=== PATIENT | female | born 1980 | race Caucasian/White ===

== ENCOUNTER 2023-10-30 09:43 | Emergency (ER) | payer OTHER, MEDICAID ==
[2023-10-30 10:20] LABS: BASOPHILS # (AUTO) 0.1 10^3/uL (0.0-0.1); BASOPHILS % (AUTO) 1.1 %; EOSINOPHILS # (AUTO) 0.3 10^3/uL (0.0-0.7); EOSINOPHILS % (AUTO) 4.3 %; HGB - HEMOGLOBIN 14.1 g/dL (12.0-16.0); LYMPHOCYTES # (AUTO) 3.3 10^3/uL (1.5-3.5); LYMPHOCYTES % (AUTO) 41.5 %; MEAN CORPUSCULAR HEMOGLOBIN 29.1 pg (27.0-31.0); MEAN CORPUSCULAR HGB CONC 32.8 g/dL (32.0-36.0); MEAN CORPUSCULAR VOLUME 88.7 fL (81.0-99.0); MEAN PLATELET VOLUME 10.9 fL (7.9-10.8); MONOCYTES # (AUTO) 0.5 10^3/uL (0.0-1.0); MONOCYTES % (AUTO) 5.7 %; NEUTROPHILS # (AUTO) 3.7 10^3/uL (1.5-6.6); PLT - PLATELET COUNT 260 10^3/uL (130-450); RED BLOOD COUNT 4.85 10^6/uL (4.20-5.40); RED CELL DISTRIBUTION WIDTH 13.5 % (12.0-15.0); WHITE BLOOD COUNT 7.9 x10^3/uL (4.8-10.8)
[2023-10-30 10:41] LABS: ALBUMIN 4.3 g/dL (3.2-5.5); ALBUMIN/GLOBULIN RATIO 1.5 (1.0-2.2); BILIRUBIN,TOTAL 0.6 mg/dL (0.2-1.0); CALCIUM 9.7 mg/dL (8.5-10.3); CREATININE 0.8 mg/dL (0.6-1.3); POTASSIUM 4.4 mmol/L (3.5-4.5); TOTAL PROTEIN 7.2 g/dL (6.4-8.9)
--- NOTE | 2023-10-30 11:12 | XRAY Report ---
PROCEDURE: Chest 1V INDICATIONS: Chest pain TECHNIQUE: One view of the chest was acquired. COMPARISON: None. FINDINGS: Surgical changes and devices: None. Lungs and pleura: Low lung volumes. No dense consolidation or pleural effusion Mediastinum: Normal heart size Bones and chest wall: No suspicious bony lesions. Overlying soft tissues appear unremarkable. IMPRESSION: No acute radiographic abnormality on this limited single view portable radiograph with low lung volum es Reviewed by: Nicolas Alejandro MD on 10/30/2023 11:11 AM PDT Approved by: Nicolas Alejandro MD on 10/30/2023 11:11 AM PDT Station ID: [id number]
--- NOTE | 2023-10-30 11:58 | ED Physician Documentation ---
PD HPI CHEST PAIN - Stated complaint Stated Complaint: CHEST PX - Chief complaint Chief Complaint: Cardiac - History obtained from History obtained from: Patient - Additional information Additional information: The patient comes to the emergency department chief complaint of right-sided chest pain for the last couple of days. She states that she had been reaching over with her right arm while leaning and was doing some repetitive work with her right arm before the pain came on. She states that she began to notice that she was getting sore around her pectoralis area and axilla and that since then, the soreness has just increased. She denies any shortness of breath or nausea. She denies any left-sided chest pain. She states that it hurts when she stretches her chest or pulled her shoulder back. She has had her gallbladder out. She states that it has just gotten uncomfortable to sleep at night and she just wanted to make sure nothing else was going on. No swelling in her legs. No history of cardiac issues. She is a borderline diabetic. No other complaints at this time. PD PAST MEDICAL HISTORY - Past Medical History Past Medical History: Yes Endocrine/Autoimmune: Type 2 diabetes - Past Surgical History Past Surgical History: No - Present Medications Home Medications: Ambulatory Orders Medication Instructions Recorded Confirmed Cyclobenzaprine [Flexeril] 10 mg PO TID PRN #20 tablet 10/30/23 HYDROcod/ACETAM 5/325 [[place] 5/325] 1 - 2 tablet PO Q6H PRN #7 tablet 10/30/23 - Allergies Allergies/Adverse Reactions: Allergies Allergy/AdvReac Type Severity Reaction Status Date / Time No Known Drug Allergies Allergy Verified 10/30/23 09:49 - Social History Does the pt smoke?: Yes Smoking Status: Current every day smoker Does the pt drink ETOH?: No Does the pt have substance abuse?: No PD ED PE NORMAL - Vitals Vital signs reviewed: Yes - General General: Alert and oriented X 3, No acute distress, Well developed/nourished - HEENT HEENT: Atraumatic, PERRL, EOMI, Moist mucous membranes - Neck Neck: Supple, no meningeal sign - Cardiac Cardiac: RRR, No murmur - Respiratory Respiratory: No respiratory distress, Clear bilaterally - Abdomen Abdomen: Soft, Non tender, Non distended - Derm Derm: Normal color, Warm and dry, No rash - Extremities Extremities: No deformity, No edema, No calf tenderness / cord - Neuro Neuro: Alert and oriented X 3 - Psych Psych: Normal mood, Normal affect - Free text exam Free text exam: Some tenderness to palpation along the right sternal border, dissipating as palpation progresses toward the right. Results - EKG (time done) 0949 EKG releavant findings:: EKG personally interpreted by author of this note. Relevant findings are: Rate: Rate (enter#) (61) Rhythm: NSR [place]: Normal Intervals: Normal [place] QRS: Normal Ischemia: Normal ST segments Compare to prior EKG: Old EKG unavailable Computer interpretation: Agree with computer - Labs Labs: Laboratory Tests 10/30/23 10/30/23 10:14 10:14 WBC 7.9 RBC 4.85 Hgb 14.1 Hct 43.0 MCV 88.7 MCH 29.1 MCHC 32.8 RDW 13.5 Plt Count 260 MPV 10.9 H Neut # (Auto) 3.7 Lymph # (Auto) 3.3 [place] # (Auto) 0.5 Eos # (Auto) 0.3 Baso # (Auto) 0.1 Absolute Nucleated RBC 0.00 Nucleated RBC % 0.0 Sodium 137 Potassium 4.4 Chloride 104 Carbon Dioxide 27 Anion Gap 6.0 BUN 17 Creatinine 0.8 Estimated GFR (MDRD) 79 L Glucose 120 H Calcium 9.7 Total Bilirubin 0.6 AST 41 ALT 104 H Alkaline Phosphatase 75 Troponin I High Sens 2.4 Total Protein 7.2 Albumin 4.3 Globulin 2.9 Albumin/Globulin Ratio 1.5 Lipase 14 - Rads (name of study) Chest x-ray Relevant Findings:: Final report received, See rad report (No acute findings.) PD Medical Decision Making - ED course Complexity details: reviewed results, re-evaluated patient, considered differential, d/w patient ED course: The patient had was in the most likely to be musculoskeletal The patient had what sounded most likely to be musculoskeletal chest pain. Given her age and diabetic history, labs, chest x-ray, and EKG had been initiated from triage. These were all unremarkable. I discussed with the patient that I think she has a musculoskeletal source of her chest pain and we have discussed symptomatic management at home. We have also discussed the usual indications for return. Patient is stable for discharge. Departure - Departure Disposition: 01 Home, Self Care Clinical Impression: Chest wall pain Condition: Stable Instructions: ED Strain Chest Wall Prescriptions: Cyclobenzaprine [Flexeril] 10 mg PO TID PRN #20 tablet PRN Reason: Spasms HYDROcod/ACETAM 5/325 [[place] 5/325] 1 - 2 tablet PO Q6H PRN #7 tablet PRN Reason: Pain Comments: Your labs and EKG look great. Your symptoms are most indicative of a musculoskeletal source of the pain, given that it hurts more in certain positions and when you move your right arm or chest back. You are also tender along the course of the pectoralis muscle complex, including attachments along the sternum. You have most likely strained your pectoralis muscle or inflamed the attachments. Prescriptions for muscle relaxer and pain medicine and been electronically [facility] in [place]. You may take these along with ibuprofen as needed. Please follow-up with your primary doctor for further concerns. Forms: PCP List Discharge Date/Time: 10/30/23 12:08
[2023-10-30 12:07] LABS: TROPONIN I HIGH SENSITIVITY 2.4 ng/L (2.3-14.8)
[2023-10-30 12:08] VITALS: BP 168/82; O2SAT 100
== END 2023-10-30 12:08 | disposition home or self-care (01) ==
LOC: ED 09:43
DX: R07.89 Other chest pain (principal); F17.200 Nicotine dependence, unspecified, uncomplicated
CPT/HCPCS: 36415; 80053; 83690; 84484; 85025; 93005; 99284